=== PATIENT | female | born 2005 | race African-American/Black ===

== ENCOUNTER 2024-03-05 22:05 | Emergency (ER) | payer OTHER, SELFPAY ==
[2024-03-05] MEDS ORDERED: Acetaminophen 500 MG TAB ONE (22:33)
[2024-03-05] MEDS ORDERED: methylPREDNISolone Sod Succ/PF 125 MG/2 ML VIAL ONE (23:26)
== END 2024-03-05 23:36 | disposition home or self-care (01) ==
LOC: MADERS 22:05
DX: J03.80 Acute tonsillitis due to other specified organisms (principal); B97.89 Other viral agents as the cause of diseases classified elsewhere
CPT/HCPCS: 87081; 87430; J2919